=== PATIENT | female | born 1950 | race Caucasian/White ===

== ENCOUNTER 2023-12-17 14:17 | Inpatient (IN) | payer OTHER ==
[2023-12-17] MEDS ORDERED: ONDANSETRON 4 MG/2 ML VIAL ONE ×2 (14:47→17:27)
[2023-12-17] MEDS ORDERED: FAMOTIDINE 20 MG/2 ML VIAL IV ONE (14:47)
[2023-12-17] MEDS ORDERED: NA CHLORIDE 0.9% 1,000 ML ONE ×2 (14:47→17:28)
[2023-12-17 15:04] LABS: Absolute Basophils 0.1 K/uL (0-0.5); Absolute Lymphocytes (CBC) 2.1 K/uL (0.7-4.9); Absolute Monocytes 1.4 K/uL (0.1-1.3); Basophils % 0.3 % (0-1.3); Eosinophils % 0.3 % (0-4.4); Hematocrit 31.1 % (36.0-45.0); Hemoglobin 9.6 g/dL (12.0-15.0); Lymphocytes % 12.8 % (15.3-44.8); MCH 28.8 pg (27.0-35.0); MPV 9.3 fL (7.6-11.3); Monocytes % 8.3 % (3.3-12.3); Neutrophils % 78.3 % (41.7-73.7); Platelets 328 thou/uL (152-406); RBC Red Blood Cell Count 3.35 M/uL (3.86-4.86); Red Cell Distribution Width 15.3 % (12.1-15.2)
[2023-12-17 15:24] LABS: AST/SGOT 14 U/L (15-37); Albumin 2.9 g/dL (3.4-5.0); Albumin/Globulin Ratio 0.8 (1.1-1.8); Alkaline Phosphatase 61 U/L (45-117); Anion Gap 8.6 mEq/L (5.0-15.0); BUN Blood Urea Nitrogen 52 mg/dL (7-18); Bicarbonate 25 mEq/L (21-32); Bilirubin Total 0.2 mg/dL (0.2-1.0); Globulin 3.5 g/dL (2.3-3.5); Glomerular Filtration Rate 41 ml/min (=/>90); Glucose Level 106 mg/dL (74-106); Lipase 32 U/L (13-75); Potassium 5.6 mEq/L (3.5-5.1); Protein, Total 6.4 g/dL (6.4-8.2); Sodium Level 140 mEq/L (136-145)
[2023-12-17 15:27] LABS: ALT/SGPT < 14 U/L (13-56)
--- NOTE | 2023-12-17 16:56 | RAD REPORT ---
EXAM DESCRIPTION: CT - Abdomen Pelvis W Contrast - 12/17/2023 3:40 pm CLINICAL HISTORY: ABD PAIN COMPARISON: No comparisons TECHNIQUE: Thin cut axial CT imaging of the abdomen and pelvis was performed following intravenous a dministration of 100 mL Isovue 300. Multiplanar reformats were generated and reviewed. All CT scans are performed using dose optimization technique as appropriate and may include automated exposure control or mA/KV adjustment according to patient size. FINDINGS: No suspicious findings in the lung bases. The liver, spleen, adrenal glands, and pancreas show no suspicious findings. Gallbladder was surgical ly removed. Symmetric renal function is seen with no hydronephrosis or suspicious renal mass. Left renal interpol ar 2.7 cm cyst is incidentally noted. No dilated bowel loops. No free air, free fluid or inflammatory stranding. No hernia, mass or bulky l ymphadenopathy. Distal colonic diverticulosis. Short segment of apparent wall thickening along the mi d to distal sigmoid colon, without significant inflammatory changes, may relate to sequelae of prior diverticulitis, however is not well characterized given suboptimal distention. The urinary bladder is without significant finding. No suspicious bony findings. IMPRESSION: No acute intra-abdominal process. Distal colonic diverticulosis. Short segment of apparent [id number] sigmoid wall thickening, may r elate to sequelae of prior diverticulitis. Correlation with prior imaging or colonoscopic findings wo uld be helpful.
[2023-12-17] MEDS ORDERED: METRONIDAZOLE 500mg IVPB 500 MG/100 ML BAG IV ONE (17:27)
[2023-12-17] MEDS ORDERED: CIPROFLOXACIN 400mg IV 400 MG/200 ML BAG IV ONE (17:27)
--- NOTE | 2023-12-17 17:36 | EDPHYS ---
Physician Documentation [facility] Name: Liat Vega Age: 73 yrs Sex: Female : 1950 Arrival Date: 12/17/2023 Time: 14:17 Bed 8 Private MD: ED Physician Ron Szymanski HPI: 12/16 14:42 This 73 yrs old Female presents to ER via Wheelchair with complaints of High Blood kb Pressure, Bloody Stools - sent by pcp. 14:42 Pt is a 73 year old female who presents for LLQ pain, blood in stools, nausea, kb dizziness and low blood pressure. States symptoms started last night and have progressed through today. Denies vomiting, fever. . Historical: - Allergies: 14:44 Codeine; ap3 14:44 Morphine; ap3 - Home Meds: 14:44 Lexapro Oral [Active]; Unithroid oral [Active]; Ambien Oral [Active]; Metoprolol ap3 Tartrate Oral [Active]; Trelegy Ellipta inhalation [Active]; Xarelto oral [Active]; - PMHx: 14:44 Chronic obstructive lung disease; Hypothyroidism; Rheumatoid arthritis; chronic kidney ap3 disease-stage three; racing heart; bleeding ulcer; - Immunization history:: Client reports receiving the 2nd dose of the Covid vaccine. - Infectious Disease History:: Denies. - Social history:: Smoking status: Patient denies any tobacco usage or history of. ROS: 14:42 Constitutional: As per HPI kb Exam: 14:42 Constitutional: This is a well developed, well nourished patient who is awake, alert, kb and in no acute distress. Head/Face: Normocephalic, atraumatic. ENT: Moist Mucous membranes Cardiovascular: Regular rate Respiratory: Respirations even and unlabored. No increased work of breathing. Talking in full sentences Skin: Warm, dry with normal turgor. Normal color. MS/ Extremity: Pulses equal, no cyanosis. Neurovascular intact. Full, normal range of motion. Neuro: Awake and alert, GCS 15, oriented to person, place, time, and situation. Moves all extremities. Normal gait. 14:42 Abdomen/GI: Inspection: abdomen appears normal, Bowel sounds: normal, Palpation: soft, in all quadrants, moderate abdominal tenderness, in the left lower quadrant, 14:48 ECG was reviewed by the Attending Physician. kb Vital Signs: 14:36 BP 69 / 47; Pulse 100; Resp 18; ap3 14:48 Weight 63.5 kg; Height 5 ft. 6 in. ; ap3 15:06 BP 100 / 61; Pulse 71; Resp 18; Pulse Ox 92% on R/A; ph 15:30 BP 92 / 58; Pulse 74; Resp 18; Pulse Ox 94% on R/A; ph 16:00 BP 105 / 60; Pulse 83; Resp 16; Pulse Ox 93% on R/A; ph 16:30 BP 97 / 65; Pulse 85; Resp 16; Pulse Ox 93% on R/A; ph 17:31 BP 101 / 59; Pulse 79; Resp 18; Pulse Ox 94% on R/A; ph 18:15 BP 97 / 60; Pulse 78; Resp 16; Pulse Ox 95% on R/A; ph 18:56 BP 105 / 63; Pulse 65; Resp 18; Pulse Ox 96% on R/A; ph 19:22 Temp 97.9(O); kd3 19:30 BP 108 / 60; Pulse 89; Resp 19; Pulse Ox 96% on R/A; kd3 21:00 BP 102 / 63; Pulse 92; Resp 18; Pulse Ox 98% on R/A; kd3 14:48 Body Mass Index 22.60 (63.50 kg, 167.64 cm) ap3 MDM: 14:37 Patient medically screened. kb 14:43 Data reviewed: vital signs, nurses notes. kb 17:33 Differential diagnosis: GI bleed, anemia, hypotension, dehydration, abnormal kb electrolytes. Consideration of Admission/Observation Patient was admitted/placed on observation. Escalation of care including admission/observation considered. 17:34 Management of patient was discussed with the following: Hospitalist: Hospitalist team, ibis pt accepted for admission under Dr Ramsay. Historians other than the Patient: Spouse/Significant Other: . Counseling: I had a detailed discussion with the patient and/or guardian regarding the historical points, exam findings, and any diagnostic results supporting the discharge/admit diagnosis, lab results, radiology results, the need for further work-up and treatment in the hospital. 17:35 ED course: Sepsis reevaluation complete. kb 17:55 ED course: sepsis reevaluation complete. kb 12/16 14:42 Order name: CBC with Diff kb 12/16 14:42 Order name: CMP; Complete Time: 15:31 kb 12/16 14:42 Order name: Lipase; Complete Time: 15:31 kb 12/16 14:42 Order name: Urinalysis w/ reflexes; Complete Time: 18:01 kb 12/16 14:45 Order name: Type And Screen ph 12/16 16:59 Order name: Blood Culture Adult (2) kb 12/16 16:59 Order name: Lactate w/ 2H reflex if indic.; Complete Time: 17:54 kb 12/16 16:59 Order name: Protime (+inr); Complete Time: 18:27 kb 12/16 16:59 Order name: Ptt, Activated; Complete Time: 18:27 kb 12/16 18:27 Order name: BB Add On EDMS 12/16 18:27 Order name: Basic Metabolic Panel EDMS 12/16 18:27 Order name: CBC with Automated Diff EDMS 12/16 18:27 Order name: CBC with Automated Diff EDMS 12/16 18:27 Order name: CBC with Automated Diff EDMS 12/16 18:27 Order name: CBC with Automated Diff EDMS 12/16 18:27 Order name: Hematocrit EDMS 12/16 18:27 Order name: Hematocrit; Complete Time: 20:32 EDMS 12/16 18:27 Order name: Hematocrit EDMS 12/16 18:27 Order name: Hemoglobin EDMS 12/16 18:27 Order name: Hemoglobin; Complete Time: 20:32 EDMS 12/16 18:27 Order name: Hemoglobin EDMS 12/16 18:27 Order name: Lipid Profile EDMS 12/16 18:27 Order name: Lipid Profile EDMS 12/16 18:27 Order name: Basic Metabolic Panel; Complete Time: 20:41 EDMS 12/16 18:28 Order name: Comprehensive Metabolic Panel EDMS 12/16 18:28 Order name: Comprehensive Metabolic Panel EDMS 12/16 18:28 Order name: Comprehensive Metabolic Panel EDMS 12/16 18:28 Order name: Comprehensive Metabolic Panel EDMS 12/16 18:56 Order name: ABO/RH no charge; Complete Time: 19:00 EDMS 12/16 14:42 Order name: CT Abd/Pelvis - IV Contrast Only; Complete Time: 16:58 kb 12/16 18:27 Order name: CONS Physician Consult EDMS 12/16 18:27 Order name: EKG Electrocardiogram EDNH 12/16 18:27 Order name: EKG Electrocardiogram EDNH 12/16 18:27 Order name: EKG Electrocardiogram EDMS 12/16 18:27 Order name: EKG Electrocardiogram EDNH 12/16 18:27 Order name: EKG Electrocardiogram EDNH 12/16 18:27 Order name: EKG Electrocardiogram EDMS 12/16 18:27 Order name: EKG Electrocardiogram EDNH 12/16 18:27 Order name: EKG Electrocardiogram EDNH 12/16 18:27 Order name: EKG Electrocardiogram EDNH 12/16 18:27 Order name: EKG Electrocardiogram EDMS 12/16 18:27 Order name: EKG Electrocardiogram EDNH 12/16 14:42 Order name: IV Saline Lock; Complete Time: 15:02 kb 12/16 14:42 Order name: Labs collected and sent; Complete Time: 15:04 kb 12/16 16:59 Order name: EKG - Nurse/Tech; Complete Time: 17:00 kb EC:48 Rate is 82 beats/min. Rhythm is regular. QRS [place] is Normal. RI interval is normal at kb 130 msec. QRS interval is normal at 80 msec. QT interval is normal at 401 msec. Administered Medications: 15:04 Drug: NS 0.9% IV 1000 ml IV at 1 bolus Per protocol; 1000 mL bolus Route: IV; Rate: 1 ph bolus; Site: left antecubital; 16:15 Follow up: Response: No adverse reaction; IV Status: Completed infusion; IV Intake: ph 1000ml 15:04 Drug: Famotidine IVP 20 mg IVP once; dilute with 10 mL 0.9% NaCl; give over 2 minutes ph Route: IVP; Site: left antecubital; 18:06 Follow up: Response: No adverse reaction ph 15:04 Drug: Ondansetron IVP 4 mg IVP once; over 2 minutes Route: IVP; Site: left antecubital; ph 18:06 Follow up: Response: No adverse reaction ph 17:44 Drug: NS 0.9% IV (30 ml/kg) 30 ml/kg IV at bolus once; subtract 1L already infused ph Route: IV; Rate: bolus; Site: left antecubital; 18:55 Follow up: Response: No adverse reaction; IV Status: Completed infusion; IV Intake: ph 1000ml 17:44 Drug: metroNIDAZOLE IVPB 500 mg 100 ml IVPB at 200 ml/hr once over 30 mins Volume: 100 ph ml; Route: IVPB; Rate: 200 ml/hr; Infused Over: 30 mins; Site: left antecubital; 18:15 Follow up: Response: No adverse reaction; IV Status: Completed infusion ph 18:06 Drug: Ciprofloxacin IVPB 400 mg 200 ml IVPB once over 60 mins Volume: 200 ml; Route: ph IVPB; Infused Over: 60 mins; Site: left antecubital; 18:55 Drug: diphenhydrAMINE IVP 12.5 mg IVP once Route: IVP; Site: left forearm; ph 19:20 Drug: Pantoprazole IV 8 mg/hr IV at 25 ml/hr continuous; (Standard dilution is 80 mg in kd3 250 mL NS) Route: IV; Rate: 25 ml/hr; Site: left antecubital; Disposition Summary: 12/17/23 17:35 Hospitalization Ordered Notes: Hospitalization Status: Inpatient Admission kb Provider: Reggie Ramsay Condition: Stable kb Problem: new kb Symptoms: are unchanged kb Bed/Room Type: Standard kb Location: Intensive Care Unit(12/17/23 18:49) bd Room Assignment: 1-(12/17/23 18:49) bd Diagnosis - Hypotension, unspecified kb - GI Bleed/ Gastrointestinal hemorrhage, unspecified kb Forms: - Medication Reconciliation Form kb - SBAR form kb - Leadership Thank You Letter kb Addendum: 12/18/2023 21:31 Co-signature as Attending Physician, Ron Szymanski MD I agree with the assessment and c sánchez plan of care. Signatures: Dispatcher [employer] EDTrisha Diaz, DIAGNOSTIC TECHNICIAN-C DIAGNOSTIC TECHNICIAN-CkGuerda Gilmore Corey, MD MD cha Waters, Shelly, DIAGNOSTIC TECHNICIAN-C DIAGNOSTIC TECHNICIAN-Csnw Orin John, RN RN Flower Archuleta RN ARABELLA [email or web address] Tamia Kaplan RN RN kd3 Corrections: (The following items were deleted from the chart) 12/16 14:43 14:43 CBC+H.LAB.BRZ ordered. EDMS EDMS 14:43 14:43 COMPREHENSIVE METABOLIC PANEL+C.LAB.BRZ ordered. EDMS EDMS 14:43 14:43 LIPASE+C.LAB.BRZ ordered. EDMS EDMS 14:43 14:43 Urinalysis+U.LAB.BRZ ordered. EDMS EDMS 14:43 14:43 Abdomen Pelvis W Con+CT.RAD.BRZ ordered. EDMS EDMS 14:46 14:46 TYPE AND SCREEN+BB.LAB.BRZ ordered. EDMS EDMS 16:59 16:59 BLOOD CULTURE*+BA.LAB.BRZ ordered. EDMS EDMS 16:59 16:59 LACTATE+C.LAB.BRZ ordered. EDMS EDMS 16:59 16:59 PROTIME (+INR)+COAG.LAB.BRZ ordered. EDMS EDMS 16:59 16:59 PTT, ACTIVATED+COAG.LAB.BRZ ordered. EDMS EDMS 18:49 17:35 Telemetry/MedSurg (Inpatient) kb 18:49 17:35 kb
--- NOTE | 2023-12-17 17:36 | ER ---
Nurse's Notes [facility] Name: Liat Vega Age: 73 yrs Sex: Female : 1950 Arrival Date: 12/17/2023 Time: 14:17 Bed 8 Private MD: Diagnosis: Hypotension, unspecified;GI Bleed/ Gastrointestinal hemorrhage, unspecified Presentation: 12/16 14:36 Chief complaint: Patient states: she started having blood in her stool last night, and ap3 she is feeling weak and dizzy. patient also reports having low blood pressure. Coronavirus screen: At this time, the client does not indicate any symptoms associated with coronavirus-19. Ebola Screen: No symptoms or risks identified at this time. Risk Assessment: Do you want to hurt yourself or someone else? Patient reports no desire to harm self or others. Onset of symptoms was December 16, 2023. 14:36 Method Of Arrival: Wheelchair ap3 14:48 Acuity: NICOLASA 2 ap3 14:49 Initial Sepsis Screen: Does the patient meet any 2 criteria? Systolic BP < 90 mmHg. ap3 Mean Arterial Pressure (MAP) < 65. HR > 90 bpm. Yes Does the patient have a suspected source of infection? No. Patient's initial sepsis screen is negative. Triage Assessment: 14:47 General: Appears ill, Behavior is calm, cooperative. Pain: Complains of pain in left ap3 lower quadrant. Neuro: Level of Consciousness is awake, alert, obeys commands, Oriented to person, place, time, situation, Weakness Reports dizziness, weakness. Cardiovascular: Patient's skin is warm and dry. Respiratory: Airway is patent Respiratory effort is even, unlabored, Respiratory pattern is regular, symmetrical. GI: Reports rectal bleeding, bloody stool, nausea. Historical: - Allergies: 14:44 Codeine; ap3 14:44 Morphine; ap3 - Home Meds: 14:44 Lexapro Oral [Active]; Unithroid oral [Active]; Ambien Oral [Active]; Metoprolol ap3 Tartrate Oral [Active]; Trelegy Ellipta inhalation [Active]; Xarelto oral [Active]; - PMHx: 14:44 Chronic obstructive lung disease; Hypothyroidism; Rheumatoid arthritis; chronic kidney ap3 disease-stage three; racing heart; bleeding ulcer; - Immunization history:: Client reports receiving the 2nd dose of the Covid vaccine. - Infectious Disease History:: Denies. - Social history:: Smoking status: Patient denies any tobacco usage or history of. Screenin:48 Abuse screen: Denies threats or abuse. Nutritional screening: No deficits noted. ap3 Tuberculosis screening: No symptoms or risk factors identified. 14:49 [facility] ED Fall Risk Assessment (Adult) History of falling in the last 3 months, ap3 including since admission No falls in past 3 months (0 pts) Confusion or Disorientation No (0 pts) Intoxicated or Sedated No (0 pts) Impaired Gait Yes (1 pt) Mobility Assist Device Used Yes (1 pt) Altered Elimination No (0 pt) Score/Fall Risk Level 0 - 2 = Low Risk Oriented to surroundings, Maintained a safe environment, Educated pt \T\ family on fall prevention, incl call for assistance when getting out of bed, Assessed \T\ reinforced patient's understanding of fall precautions, Provided non-skid footwear, Hourly rounding (assess needs \T\ fall precautionary measures) done, Used ambulatory aids as needed (educated on \T\ assisted with), Used gait belt as appropriate. Assessment: 15:00 General: Appears in no apparent distress. Behavior is calm, cooperative. Pain: ph Complains of pain in left lower quadrant. Neuro: Level of Consciousness is awake, alert, obeys commands, Oriented to person, place, time, situation. Cardiovascular: Capillary refill < 3 seconds in bilateral fingers Patient's skin is warm and dry. Respiratory: Airway is patent Respiratory effort is even, unlabored. GI: Reports lower abdominal pain, rectal bleeding, bloody stool, nausea. : No signs and/or symptoms were reported regarding the genitourinary system. Derm: Skin is pale. 19:14 General: PT placed on breathing treatment by RT. . ph 19:29 General: Attempted to call report to ICU. Gave call back number. . kd3 20:53 General: Attempted to transport pt to the ICU. Fire alarms activated, locking the kd3 elevators. Pt transported back to the ED. Pt's HGB decreased significantly. PT educated on blood transfusion. . Vital Signs: 14:36 BP 69 / 47; Pulse 100; Resp 18; ap3 14:48 Weight 63.5 kg; Height 5 ft. 6 in. ; ap3 15:06 BP 100 / 61; Pulse 71; Resp 18; Pulse Ox 92% on R/A; ph 15:30 BP 92 / 58; Pulse 74; Resp 18; Pulse Ox 94% on R/A; ph 16:00 BP 105 / 60; Pulse 83; Resp 16; Pulse Ox 93% on R/A; ph 16:30 BP 97 / 65; Pulse 85; Resp 16; Pulse Ox 93% on R/A; ph 17:31 BP 101 / 59; Pulse 79; Resp 18; Pulse Ox 94% on R/A; ph 18:15 BP 97 / 60; Pulse 78; Resp 16; Pulse Ox 95% on R/A; ph 18:56 BP 105 / 63; Pulse 65; Resp 18; Pulse Ox 96% on R/A; ph 19:22 Temp 97.9(O); kd3 19:30 BP 108 / 60; Pulse 89; Resp 19; Pulse Ox 96% on R/A; kd3 21:00 BP 102 / 63; Pulse 92; Resp 18; Pulse Ox 98% on R/A; kd3 14:48 Body Mass Index 22.60 (63.50 kg, 167.64 cm) ap3 ED Course: 14:21 Patient arrived in ED. ra3 14:37 [facility]ellers [facility]C [facility] kb 14:37 Ron Szymanski MD is Attending Physician. kb 14:44 Orin John, ARABELLA is Primary Nurse. ph 14:48 Triage completed. ap3 14:48 Arm band placed on left wrist. ap3 14:49 Patient has correct armband on for positive identification. Bed in low position. Call ap3 light in reach. Side rails up X2. Adult w/ patient. Client placed on continuous cardiac and pulse oximetry monitoring. NIBP monitoring applied. personnel monitor on. Pulse ox on. NIBP on. 15:04 CBC with Diff Sent. ph 15:04 CMP Sent. ph 15:04 Lipase Sent. ph 15:05 Initial lab(s) drawn, by me, sent to lab. EKG done, by ED staff, reviewed by Trisha OLMOS T\T\S collected, blood band applied to patient. Inserted saline lock: 18 gauge in left antecubital area, using aseptic technique. Blood collected. Flushed with 10 mL NS. 15:42 CT Abd/Pelvis - IV Contrast Only In Process Unspecified. EDMS 16:49 No provider procedures requiring assistance completed. ph 17:31 Blood Culture Adult (2) Sent. ph 17:31 Lactate w/ 2H reflex if indic. Sent. ph 17:31 Protime (+inr) Sent. ph 17:31 Ptt, Activated Sent. ph 17:35 Reggie Ramsay MD is Hospitalizing Provider. kb 17:45 Inserted saline lock: 22 gauge in left forearm, using aseptic technique. Flushed with ph 10 mL NS. 18:56 Patient admitted, IV remains in place. ph 19:21 Primary Nurse role handed off by Orin John RN ty 19:23 Tamia Kaplan, ARABELLA is Primary Nurse. kd3 20:54 Provided Education on: Blood Transfusion. kd3 Administered Medications: 15:04 Drug: NS 0.9% IV 1000 ml IV at 1 bolus Per protocol; 1000 mL bolus Route: IV; Rate: 1 ph bolus; Site: left antecubital; 16:15 Follow up: Response: No adverse reaction; IV Status: Completed infusion; IV Intake: ph 1000ml 15:04 Drug: Famotidine IVP 20 mg IVP once; dilute with 10 mL 0.9% NaCl; give over 2 minutes ph Route: IVP; Site: left antecubital; 18:06 Follow up: Response: No adverse reaction ph 15:04 Drug: Ondansetron IVP 4 mg IVP once; over 2 minutes Route: IVP; Site: left antecubital; ph 18:06 Follow up: Response: No adverse reaction ph 17:44 Drug: NS 0.9% IV (30 ml/kg) 30 ml/kg IV at bolus once; subtract 1L already infused ph Route: IV; Rate: bolus; Site: left antecubital; 18:55 Follow up: Response: No adverse reaction; IV Status: Completed infusion; IV Intake: ph 1000ml 17:44 Drug: metroNIDAZOLE IVPB 500 mg 100 ml IVPB at 200 ml/hr once over 30 mins Volume: 100 ph ml; Route: IVPB; Rate: 200 ml/hr; Infused Over: 30 mins; Site: left antecubital; 18:15 Follow up: Response: No adverse reaction; IV Status: Completed infusion ph 18:06 Drug: Ciprofloxacin IVPB 400 mg 200 ml IVPB once over 60 mins Volume: 200 ml; Route: ph IVPB; Infused Over: 60 mins; Site: left antecubital; 18:55 Drug: diphenhydrAMINE IVP 12.5 mg IVP once Route: IVP; Site: left forearm; ph 19:20 Drug: Pantoprazole IV 8 mg/hr IV at 25 ml/hr continuous; (Standard dilution is 80 mg in kd3 250 mL NS) Route: IV; Rate: 25 ml/hr; Site: left antecubital; Medication: 16:39 VIS not applicable for this client. ph Intake: 16:15 IV: 1000ml; Total: 1000ml. ph 18:55 IV: 1000ml; Total: 2000ml. ph Outcome: 17:35 Decision to Hospitalize by Provider. kb 18:56 Condition: stable ph 18:56 Instructed on the need for admit, 21:25 Admitted to ICU accompanied by nurse, room 1, on monitor, with chart, Report called to kit Magaña RN 21:26 Patient left the ED. mark3 Signatures: Dispatcher [employer] EDMS Trisha Sellers, MOVIE WRITER-C MOVIE WRITER-Orin Mesa, RN RN ph Flower Kong RN RN dc3 Tamia Kaplan RN RN mark3 Yarelis bAbasi Tylor ty
[2023-12-17 17:54] LABS: Sqamous Epithelial <5 /HPF (None Seen); Urine Bacteria None Seen /HPF (<20); Urine Bilirubin NEGATIVE (Negative); Urine Blood 2+ (Negative); Urine Clarity Clear (Clear); Urine Color Light-Yellow (Yellow); Urine Culture Reflex Order NOT NEEDED; Urine Glucose NEGATIVE (Negative); Urine Ketones NEGATIVE (Negative); Urine Microscopic Reflex YN ORDER UMIC; Urine Nitrite NEGATIVE (Negative); Urine Protein NEGATIVE (Negative); Urine RBC <5 /HPF (None Seen); Urine Urobilinogen Normal (Normal); Urine WBC <5 /HPF (<5); Urine pH 5.5 (5.0-7.0)
[2023-12-17 17:57] LABS: Specific Gravity > 1.030 (1.005-1.030)
[2023-12-17] MEDS: PANTOPRAZOLE INJ 80 MG in NA CHLORIDE 0.9% 250 ML IV SCH (18:00)
[2023-12-17] MEDS ORDERED: MORPHINE 2 MG/ML SYR IV PRN (18:16)
[2023-12-17 18:25] LABS: PT Prothrombin Time 15.3 SECONDS (9.4-12.5); PTT, Activated Partial Thromb 31.8 SECONDS (24.3-36.9); Protime INR 1.38
[2023-12-17] MEDS: FUROSEMIDE 40 MG/4 ML VIAL IV ONE (18:32)
[2023-12-17] MEDS ORDERED: DIPHENHYDRAMINE 50 MG/ML VIAL ONE (18:46)
[2023-12-17] MEDS ORDERED: ALBUTEROL 2.5 MG/3 ML NEB SOL ONE ×2 (19:02→20:07)
[2023-12-17] MEDS: ALBUTEROL 2.5 MG/3 ML NEB SOL NEB ONE ×2 (19:06→20:45)
--- NOTE | 2023-12-17 19:15 | P.HP ---
Certification for Inpatient Patient admitted to: Inpatient With expected LOS: >2 Midnights Patient will require the following post-hospital care: None Practitioner: I am a practitioner with admitting privileges, knowledge of patient current condition, hospital course, and medical plan of care. Services: Services provided to patient in accordance with Admission requirements found in Title 42 Section 412.3 of the Code of Federal Regulations <Soledad Wall - Last Filed: 12/17/23 19:07> Patient History Date of Service: 12/17/23 Primary Care Provider: came from Dr. Mckinney's office Reason for admission: GIB, hypotension, hyperkalemia History of Present Illness: Ms. Vega is a 73-year-old female with a past medical history of tachycardia, hypothyroidism, hyperlipidemia, ulcers, and diverticulitis. She has had GI bleeding about every 3 months for about a year. She states that last p.m. she knew she was bleeding because of the smell not so much what the stool looked like. She denies ever receiving blood. She recently had an endoscopy that showed an ulcer but she cannot say where. She went to see Dr. Mckinney this morning and when she arrived she was so hypotensive that she was sent to the emergency. She states she did not only feel like she was going to pass out but she felt like she was going to . She arrived in the emergency department with a systolic pressure in the 60s. She was given a normal saline fluid bolus, Pepcid, Cipro, Flagyl, and placed on a Protonix drip. She is currently awake, alert, oriented. Systolic pressure is 105. She will be admitted to ICU for further evaluation and treatment with a consult to Dr. Murillo. Labs: WBC 16.6 with neutrophils of 78.3%, H/H 9.6/31.1 with platelets of 328. Sodium 140, potassium 5.6, chloride 112, bicarb 25, glucose 106, BUN 52, creatinine 1.36 with a GFR of 41, LFTs normal, lipase 32, lactate 1.3, INR 1.38. Patient is be positive Imaging: CT abdomen pelvis with contrast impression: "No acute intra-abdominal process. Distal colonic diverticulosis. Short segment of apparent mid to distal sigmoid wall thickening, may relate to sequelae of prior diverticulitis. Correlation with prior imaging or colonoscopic findings would be helpful. Home medications list reviewed: Yes - Past Medical/Surgical History Has patient received pneumonia vaccine in the past: No Diabetic: No -: GIB -: Diverticulosis -: Ulcers (unknown if gastric/intestinal) -: Tachycardia -: Hypothyroid -: right foot surgery -: catarct -: tonsillectomy -: appendectomy -: hysterectomy -: cholecystectomy -: Berry Fundiplication Psychosocial/ Personal History: Lives at home with . - Family History Father -: GI disease, Liver disease - Social History Smoking Status: Unknown if ever smoked Alcohol use: No CD- Drugs: No Caffeine use: Yes Place of Residence: Home <Soledad Wall - Last Filed: 12/17/23 19:07> Date of Service: 12/18/23 <Reggie Ramsay - Last Filed: 12/18/23 09:49> Allergies codeine Allergy (Verified 12/17/23 19:20) morphine Allergy (Verified 12/17/23 19:20) ciprofloxacin [From Cipro] Adverse Reaction (Verified 12/18/23 07:37) Home Medications: Atorvastatin Calcium [Lipitor] 10 mg PO BEDTIME 12/17/23 Escitalopram Oxalate [Lexapro] 10 mg PO DAILY 12/17/23 Levothyroxine Sodium [Euthyrox] 75 mcg PO DAILY 12/17/23 Metoprolol Succinate [Toprol Xl] 25 mg PO DAILY 12/17/23 Pantoprazole [Protonix Tab*] 1 tab PO DAILY 12/17/23 Zolpidem Tartrate [Ambien*] 10 mg PO BEDTIME 12/17/23 Cetirizine HCl [Zyrtec] 10 mg PO DAILY 12/18/23 Rivaroxaban [Xarelto] 20 mg PO DAILY 12/18/23 Review of Systems 10-point ROS is otherwise unremarkable General: Weakness, Malaise Cardiovascular: Palpitations Gastrointestinal: Abdominal Pain, Hematochezia, As per HPI Neurological: Other (syncope) <Soledad Wall - Last Filed: 12/17/23 19:07> Physical Examination - Physical Exam General: Alert, In no apparent distress, Oriented x3 HEENT: Other (pale conjunctiva) Neck: Supple Respiratory: Normal air movement, Other (nasal congestion) Cardiovascular: Normal pulses, Regular rate/rhythm Capillary refill: <2 Seconds Gastrointestinal: Hypoactive, Soft and benign Musculoskeletal: No clubbing Integumentary: Other (pallor) Neurological: Normal speech, Normal tone, Normal affect Lymphatics: No axilla or inguinal lymphadenopathy External genitalia: Deferred Rectal: Deferred - Studies Laboratory Data (last 24 hrs) 12/17/23 12/17/23 12/17/23 17:15 14:50 14:50 WBC 16.60 H Hgb 9.6 L Hct 31.1 L Plt Count 328 PT 15.3 H INR 1.38 APTT 31.8 Sodium 140 Potassium 5.6 H BUN 52 H Creatinine 1.36 H Glucose 106 Total Bilirubin 0.2 AST 14 L ALT < 14 Alkaline Phosphatase 61 Lipase 32 <Soledad Wall - Last Filed: 12/17/23 19:07> - Studies Laboratory Data (last 24 hrs) 12/17/23 12/17/23 12/17/23 17:15 14:50 14:50 WBC 16.60 H Hgb 9.6 L Hct 31.1 L Plt Count 328 PT 15.3 H INR 1.38 APTT 31.8 Sodium 140 Potassium 5.6 H BUN 52 H Creatinine 1.36 H Glucose 106 Total Bilirubin 0.2 AST 14 L ALT < 14 Alkaline Phosphatase 61 Lipase 32 <Reggie Ramsay - Last Filed: 12/18/23 09:49> Assessment and Plan - Plan GIB with hypotension Gentle hydration Protonix drip NPO Consult Dr. Hart monitor and trend, serial H/H PRBCs prn Hgb < 8.0 bedrest Ulcer Bleeding study tomorrow vs scope Dr. Hart consult Diverticulosis Cipro Flagyl Pain control Hyperkalemia Albuterol for hyperkalemia Lasix x 1 if BP permits COPD Albuterol pulmonary toilet Plan to discharge in: Greater than 2 days - Advance Directives Does patient have a Living Will: No Does patient have a Durable POA for Healthcare: No <Soledad Wall - Last Filed: 12/17/23 19:07> - Plan Pt seen and examined. I agree with the note by the CELL TENDER. Pt is a 73yo female with past medical history of hypothyroidism, hyperlipidemia, ulcers, and diverticulitis who presented with GI bleed. She usually bleeds about once every 3 months over the past 1 year. Pt went to Dr. Mckinney's office where her vital signs showed hypotension. She was sent to the ER for evaluation where she was hydrated. Lab studies show WBC 16.6 with neutrophils of 78.3%, H/H 9.6/31.1 with platelets of 328. Sodium 140, potassium 5.6, chloride 112, bicarb 25, glucose 106, BUN 52, creatinine 1.36 with a GFR of 41, LFTs normal, lipase 32, lactate 1.3, INR 1.38. CT abd/pelvis is concerning for diverticulitis. At [facility], pt is in [facility]. A/P: GI bleed with hypotension: Hgb is 9.6. Will continue IVFa nd monitor H/H. Continue protonix drip and consult GI. Possible Diverticulitis: CT abd shows No acute intra-abdominal process. Distal colonic diverticulosis. Short segment of apparent mid to distal sigmoid wall thickening, may relate to sequelae of prior diverticulitis. Continue cipro and flagyl. COPD: stable. Continue prn duoned and oxygen. Hyperkalemia: Will treat and monitor K level. <Reggie Ramsay - Last Filed: 12/18/23 09:49>
[2023-12-17 20:19] LABS: Hematocrit 23.1 % (36.0-45.0); Hemoglobin 7.2 g/dL (12.0-15.0)
[2023-12-17 20:28] LABS: Anion Gap 7.9 mEq/L (5.0-15.0); Potassium 3.9 mEq/L (3.5-5.1)
[2023-12-17] MEDS: CIPROFLOXACIN 400mg IV 400 MG/200 ML BAG IV SCH (21:00)
[2023-12-17] MEDS: NA CHLORIDE 0.9% 250 ML ONE (21:50)
[2023-12-17] MEDS: FUROSEMIDE 20 MG/ 2ML VIAL ONE (21:52)
[2023-12-17 21:54] LABS: Blood Morphology Comment NOT SEEN (NOT SEEN); Platelet Estimate ADEQ; White Blood Cell Scan OK (OK)
[2023-12-17] MEDS: NA CHLORIDE 0.9% 250 ML IV SCH (21:56)
[2023-12-17] MEDS: NA CHLORIDE 0.9% 1,000 ML IV SCH (21:56)
[2023-12-17] MEDS: ONDANSETRON 4 MG/2 ML VIAL IV PRN (22:24)
[2023-12-17 23:43] VITALS: BMI 23.6
[2023-12-18] MEDS: NA CHLORIDE 0.9% 250 ML IV ONE (00:19)
[2023-12-18] MEDS: METRONIDAZOLE 500mg IVPB 500 MG/100 ML BAG IV SCH (01:00)
[2023-12-18 05:21] LABS: Absolute Basophils 0.1 K/uL (0-0.5); Absolute Eosinophils 0.4 K/uL (0-0.5); Absolute Monocytes 1.1 K/uL (0.1-1.3); Absolute Neutrophil 6.8 K/uL (1.8-8.0); Basophils % 0.7 % (0-1.3); Eosinophils % 4.2 % (0-4.4); MCHC 33.3 g/dL (32.0-36.0); MPV 8.9 fL (7.6-11.3); Monocytes % 10.3 % (3.3-12.3); Neutrophils % 65.8 % (41.7-73.7); Nucleated Red Blood Cells % 0.1 % (0-0); Platelets 197 thou/uL (152-406); RBC Red Blood Cell Count 3.33 M/uL (3.86-4.86); Red Cell Distribution Width 15.8 % (12.1-15.2)
[2023-12-18 05:54] LABS: AST/SGOT 15 U/L (15-37); Albumin 2.7 g/dL (3.4-5.0); Albumin/Globulin Ratio 1.2 (1.1-1.8); Alkaline Phosphatase 42 U/L (45-117); Anion Gap 6.9 mEq/L (5.0-15.0); BUN Blood Urea Nitrogen 49 mg/dL (7-18); Bicarbonate 26 mEq/L (21-32); Bilirubin Total 0.4 mg/dL (0.2-1.0); Globulin 2.3 g/dL (2.3-3.5); Glomerular Filtration Rate 54 ml/min (=/>90); Glucose Level 83 mg/dL (74-106); HDL Cholesterol 32 mg/dL (40-60); LDL Cholesterol, Calculated 38 mg/dL (<130); LDL Cholesterol,Calc NonReport 38; Potassium 3.9 mEq/L (3.5-5.1); Sodium Level 145 mEq/L (136-145)
[2023-12-18 06:02] LABS: ALT/SGPT < 14 U/L (13-56)
[2023-12-18] MEDS: FENTANYL CITR 100 MCG/2 ML IV ONE (08:44)
[2023-12-18] MEDS: LORazepam 2 MG/ML VIAL IV ONE (09:48)
--- NOTE | 2023-12-18 09:55 | P.PN ---
Subjective Date of Service: 12/18/23 Primary Care Provider: came from Dr. Mckinney's office Chief Complaint: GIB, hypotension, hyperkalemia Subjective: No new changes (LLQ pain and slight headache this am. H/H up to 03/18. Awaiting eval per Dr. Hart. Pressure remains soft) <WallSoledad - Last Filed: 12/18/23 09:57> Date of Service: 12/18/23 <Reggie Ramsay - Last Filed: 12/18/23 15:00> Review of Systems 10-point ROS is otherwise unremarkable General: Malaise Cardiovascular: As per HPI Gastrointestinal: As per HPI Neurological: As per HPI <WallSoledad Jose G - Last Filed: 12/18/23 09:57> Physical Examination - Vital Signs Temperature: 98 F Blood Pressure: 105/68 Pulse: 79 Respirations: 19 Pulse Ox (%): 97 - Physical Exam General: Alert, Oriented x3, Mild distress, Other (flushed) HEENT: Atraumatic, Normocephalic Neck: Supple Respiratory: Normal air movement Cardiovascular: Regular rate/rhythm, Normal S1 S2 Capillary refill: <2 Seconds Gastrointestinal: Tenderness (LLQ) Musculoskeletal: No clubbing Integumentary: Other (flushed) Neurological: Normal tone, Normal affect, Abnormal strength Lymphatics: No axilla or inguinal lymphadenopathy External genitalia: Deferred Rectal: Deferred - Studies Laboratory Data (last 24 hrs) 12/17/23 12/17/23 12/17/23 17:15 14:50 14:50 WBC 16.60 H Hgb 9.6 L Hct 31.1 L Plt Count 328 PT 15.3 H INR 1.38 APTT 31.8 Sodium 140 Potassium 5.6 H BUN 52 H Creatinine 1.36 H Glucose 106 Total Bilirubin 0.2 AST 14 L ALT < 14 Alkaline Phosphatase 61 Lipase 32 <Soledad Wall Jose G - Last Filed: 12/18/23 09:57> - Studies Laboratory Data (last 24 hrs) 12/17/23 12/17/23 12/17/23 17:15 14:50 14:50 WBC 16.60 H Hgb 9.6 L Hct 31.1 L Plt Count 328 PT 15.3 H INR 1.38 APTT 31.8 Sodium 140 Potassium 5.6 H BUN 52 H Creatinine 1.36 H Glucose 106 Total Bilirubin 0.2 AST 14 L ALT < 14 Alkaline Phosphatase 61 Lipase 32 <Reggie Ramsay - Last Filed: 12/18/23 15:00> Assessment And Plan - Plan GIB with hypotension Gentle hydration Protonix drip NPO Consult Dr. Hart monitor and trend, serial H/H PRBCs prn Hgb < 8.0 bedrest Ulcer Bleeding study tomorrow vs scope Dr. Hart consult Diverticulosis Cipro - pt c/o itching and rash with dose, benadryl given. Held dose second to PRBC infusion. Held this am dose (12/18/23) Flagyl Pain control Hyperkalemia Albuterol for hyperkalemia, potassium 5.6 to 3.8 on 12/17 Lasix x 1 if BP permits COPD Albuterol pulmonary toilet Tachycardia takes Metoprolol at home - hold second to hypotension DVT post foot surgery in November 10. This is second DVT. Placed on Xarelto qod. Hold Xarelto VTE/GI scd/protonix <WallSoledad - Last Filed: 12/18/23 09:57> - Plan Pt seen and examined. I agree with the note by the CONSERVATION SCIENCE OFFICER. Hgb is 10 after blood transfusion for acute blood loss anemia. She had maroon blood in her stool. Waiting for GI evaluation. Continue protonix drip. Continue cipro and flagyl for possible diverticulitis. <Reggie Ramsay - Last Filed: 12/18/23 15:00>
--- NOTE | 2023-12-18 11:45 | EKG ---
Test Date: 2023-12-17 Test Time: 14:46:06 Compensation Consulting Manager: MASTER MEASUREMENT RESULTS: Intervals: Rate: 82 IA: 130 QRSD: 80 QT: 344 QTc: 401 [place]: P: 80 IA: 130 QRS: 55 T: 75 INTERPRETIVE STATEMENTS: Normal sinus rhythm Normal ECG No previous ECG available for comparison Electronically Signed On 12-18-23 11:42:50 CDT by Lamont Jiménez
[2023-12-18 11:57] LABS: Hematocrit 29.9 % (36.0-45.0); Hemoglobin 9.8 g/dL (12.0-15.0)
[2023-12-18] MEDS ORDERED: propofoL 200 MG/20 ML VIAL IV ONE (12:45)
[2023-12-18] MEDS: Ringers Lactate 1,000 ML IV ONE (12:47)
[2023-12-18] MEDS: ACETAMINOPHEN 500 MG TAB PO ONE (14:01)
[2023-12-18] MEDS: PANTOPRAZOLE INJ 80 MG in NA CHLORIDE 0.9% 250 ML IV SCH (14:02)
[2023-12-18] MEDS: FENTANYL CITR 100 MCG/2 ML IV PRN (14:02)
[2023-12-18] MEDS: SIMETHICONE 40 MG/ 0.6 ML PO SCH (16:06)
[2023-12-19] MEDS: ACETAMINOPHEN 325 MG TABLET PO PRN (01:16)
[2023-12-19 06:03] LABS: Absolute Eosinophils 0.7 K/uL (0-0.5); Absolute Lymphocytes (CBC) 1.2 K/uL (0.7-4.9); Absolute Monocytes 0.6 K/uL (0.1-1.3); Absolute Neutrophil 4.7 K/uL (1.8-8.0); Basophils % 0.6 % (0-1.3); Eosinophils % 9.6 % (0-4.4); Hematocrit 27.3 % (36.0-45.0); Hemoglobin 9.2 g/dL (12.0-15.0); Lymphocytes % 17.3 % (15.3-44.8); MCH 30.2 pg (27.0-35.0); MCHC 33.7 g/dL (32.0-36.0); MCV 89.6 fL (80-100); MPV 8.7 fL (7.6-11.3); Monocytes % 7.7 % (3.3-12.3); Neutrophils % 64.8 % (41.7-73.7); Platelets 170 thou/uL (152-406); RBC Red Blood Cell Count 3.05 M/uL (3.86-4.86)
[2023-12-19 06:23] LABS: ALT/SGPT < 14 U/L (13-56); AST/SGOT 18 U/L (15-37); Albumin 2.7 g/dL (3.4-5.0); Albumin/Globulin Ratio 1.1 (1.1-1.8); Alkaline Phosphatase 46 U/L (45-117); Anion Gap 4.1 mEq/L (5.0-15.0); BUN Blood Urea Nitrogen 22 mg/dL (7-18); Bicarbonate 27 mEq/L (21-32); Bilirubin Total 0.4 mg/dL (0.2-1.0); Globulin 2.5 g/dL (2.3-3.5); Glomerular Filtration Rate 70 ml/min (=/>90); Glucose Level 81 mg/dL (74-106); Potassium 4.1 mEq/L (3.5-5.1); Protein, Total 5.2 g/dL (6.4-8.2); Sodium Level 145 mEq/L (136-145)
[2023-12-19] MEDS: PROMETHAZINE INJ 25 MG/ML AMP IV PRN (11:54)
--- NOTE | 2023-12-19 12:40 | P.PN ---
Subjective Date of Service: 12/19/23 Primary Care Provider: came from Dr. Mckinney's office Chief Complaint: GIB, hypotension, hyperkalemia Subjective: Improving (still having some nausea and dark, tary stools) <Soledad Wall - Last Filed: 12/19/23 12:36> Date of Service: 12/19/23 <ZaidnerisLinuskeniaclement C - Last Filed: 12/19/23 13:15> Review of Systems 10-point ROS is otherwise unremarkable General: Weakness Gastrointestinal: Abdominal Pain, Melena, Hematochezia, As per HPI Neurological: Weakness <Soledad Wall - Last Filed: 12/19/23 12:36> Physical Examination - Vital Signs Temperature: 97.9 F Blood Pressure: 108/53 Pulse: 84 Respirations: 16 Pulse Ox (%): 95 - Physical Exam General: Alert, In no apparent distress, Oriented x3 HEENT: Atraumatic, Normocephalic Neck: Supple Respiratory: Normal air movement Cardiovascular: Normal pulses, Regular rate/rhythm Capillary refill: <2 Seconds Gastrointestinal: Soft and benign Musculoskeletal: No clubbing, No swelling Integumentary: No rashes Neurological: Normal speech, Normal tone Lymphatics: No axilla or inguinal lymphadenopathy External genitalia: Deferred Rectal: Deferred <Soledad Wall - Last Filed: 12/19/23 12:36> Assessment And Plan - Plan GIB with hypotension Gentle hydration Protonix drip NPO = advance Consult Dr. Hart - took pt for endoscopy 12/18/23, recommends pill cameral monitor and trend, serial H/H PRBCs prn Hgb < 8.0, Hgb stable bedrest Ulcer Bleeding study tomorrow vs scope Dr. Hart following Diverticulosis Cipro - pt c/o itching and rash with dose, benadryl given. Held dose second to PRBC infusion. Held this am dose (12/18/23) Flagyl (WBCs trending down) Pain control Hyperkalemia Albuterol for hyperkalemia, potassium 5.6 to 3.8 on 12/17 Lasix x 1 if BP permits COPD Albuterol pulmonary toilet Tachycardia takes Metoprolol at home - hold second to hypotension DVT post foot surgery in November 10. This is second DVT. Placed on Xarelto qod. Hold Xarelto VTE/GI scd/protonix <Soledad Wall Jose G - Last Filed: 12/19/23 12:36> - Plan Pt seen and examined. I agree with the note by the OCCUPATIONAL HYGIENIST. Hgb is 9.2 <- 10 after blood transfusion for acute blood loss anemia. She is currently having dark tarry stool. Monitor H/H. GI did EGD which showed non-bleeding gastric ulcer. GI plans to do capsule endoscopy. Continue protonix drip. Continue cipro and flagyl for possible diverticulitis. Continue prn benadryl for itching. <Reggie Ramsay - Last Filed: 12/19/23 13:15>
[2023-12-19] MEDS: PROMETHAZINE INJ 25 MG/ML AMP IV ONE (15:29)
[2023-12-19] MEDS: HYDROMORPHONE HCL 2 MG/ML inj IV ONE (15:29)
[2023-12-19] MEDS: HYDROMORPHONE HCL 0.5 MG/0.5 ML INJ IV PRN (23:24)
[2023-12-20 05:55] LABS: Absolute Eosinophils 0.7 K/uL (0-0.5); Absolute Lymphocytes (CBC) 1.3 K/uL (0.7-4.9); Absolute Monocytes 0.6 K/uL (0.1-1.3); Absolute Neutrophil 2.7 K/uL (1.8-8.0); Basophils % 0.7 % (0-1.3); Eosinophils % 14.1 % (0-4.4); Hematocrit 27.7 % (36.0-45.0); Hemoglobin 9.3 g/dL (12.0-15.0); Lymphocytes % 24.3 % (15.3-44.8); MCHC 33.5 g/dL (32.0-36.0); MCV 89.7 fL (80-100); MPV 8.5 fL (7.6-11.3); Monocytes % 10.8 % (3.3-12.3); Neutrophils % 50.1 % (41.7-73.7); Nucleated Red Blood Cells % 0.1 % (0-0); Platelets 197 thou/uL (152-406); RBC Red Blood Cell Count 3.09 M/uL (3.86-4.86); Red Cell Distribution Width 16.2 % (12.1-15.2)
[2023-12-20 06:07] LABS: AST/SGOT 19 U/L (15-37); Albumin 2.5 g/dL (3.4-5.0); Alkaline Phosphatase 52 U/L (45-117); Anion Gap 3.8 mEq/L (5.0-15.0); BUN Blood Urea Nitrogen 12 mg/dL (7-18); Bicarbonate 26 mEq/L (21-32); Bilirubin Total 0.3 mg/dL (0.2-1.0); Globulin 2.6 g/dL (2.3-3.5); Glomerular Filtration Rate 70 ml/min (=/>90); Glucose Level 89 mg/dL (74-106); Potassium 3.8 mEq/L (3.5-5.1); Protein, Total 5.1 g/dL (6.4-8.2); Sodium Level 143 mEq/L (136-145)
[2023-12-20 06:15] LABS: ALT/SGPT < 14 U/L (13-56)
[2023-12-20 11:19] VITALS: O2SAT 98
--- NOTE | 2023-12-20 11:55 | P.DS ---
Admission Date: 12/17/23 Discharge Date: 12/20/23 Primary Care Provider: came from Dr. Mckinney's office Disposition: ROUTINE DISCHARGE Reason for Admission: GIB, hypotension, hyperkalemia Consultations: Dr. Hart Procedures: EGD Brief History of Present Illness: Ms. Vega is a 73-year-old female with a past medical history of tachycardia, hypothyroidism, hyperlipidemia, ulcers, and diverticulitis. She has had GI bleeding about every 3 months for about a year. She states that last p.m. she knew she was bleeding because of the smell not so much what the stool looked like. She denies ever receiving blood. She recently had an endoscopy that showed an ulcer but she cannot say where. She went to see Dr. Mckinney this morning and when she arrived she was so hypotensive that she was sent to the emergency. She states she did not only feel like she was going to pass out but she felt like she was going to . She arrived in the emergency department with a systolic pressure in the 60s. She was given a normal saline fluid bolus, Pepcid, Cipro, Flagyl, and placed on a Protonix drip. She is currently awake, alert, oriented. Systolic pressure is 105. She will be admitted to ICU for further evaluation and treatment with a consult to Dr. Murillo. Labs: WBC 16.6 with neutrophils of 78.3%, H/H 9.6/31.1 with platelets of 328. Sodium 140, potassium 5.6, chloride 112, bicarb 25, glucose 106, BUN 52, creatinine 1.36 with a GFR of 41, LFTs normal, lipase 32, lactate 1.3, INR 1.38. Patient is B+ Imaging: CT abdomen pelvis with contrast impression: "No acute intra-abdominal process. Distal colonic diverticulosis. Short segment of apparent mid to distal sigmoid wall thickening, may relate to sequelae of prior diverticulitis. Correlation with prior imaging or colonoscopic findings would be helpful. Hospital Course: 12/18/23 2 units PRBCs given and H/H up to 03/18. Blood pressure remains soft. Electrolytes improved and WBC trending down. Remains on Flagyl IV, Cipro discontinued secondary to itching. Dr. Murillo performed endoscopy. No active bleeding noted. Positive inflammatory changes without malignancy, negative for H. pylori. he would like a swallow camera endoscopy. 12/19/23 H/H stable at 9.2/27.3. Remains nauseated with dark tarry stools. Blood pressure remains soft. H/H seems to have stabilized but will recheck in the morning to evaluate for discharge 12/20/23 Appt set with GI for Saturday12/24/23. Pt states she will also make an appointment with her vascular surgeon. She is pain free today. Hemoglobin stable. No melena today. Mrs. Vega will be discharged to continue her regular medications which does include Xarelto every other day. New prescriptions on discharge: Flagyl 500mg po TID x 5 days. Discussed bland diet and safe activity. She is aware she should remain seated and call for assistance if her admission symptoms recur Vital Signs/Physical Exam: Temp Pulse Resp BP Pulse Ox 97.3 F 71 16 142/74 H 98 12/20/23 08:00 12/20/23 08:00 12/20/23 08:00 12/20/23 08:00 12/20/23 08:00 General: Alert, In no apparent distress, Oriented x3 HEENT: Atraumatic, Normocephalic Neck: Supple Respiratory: Normal air movement Cardiovascular: Regular rate/rhythm Capillary refill: <2 Seconds Gastrointestinal: Soft and benign Musculoskeletal: No clubbing, No swelling Integumentary: No rashes Neurological: Normal speech, Normal tone, Normal affect Lymphatics: No axilla or inguinal lymphadenopathy External genitalia: Deferred Rectal: Deferred Laboratory Data at Discharge: WBC 5.30 thou/uL (4.3-10.9) 12/20/23 05:25 Hgb 9.3 g/dL (12.0-15.0) L 12/20/23 05:25 Hct 27.7 % (36.0-45.0) L 12/20/23 05:25 Plt Count 197 thou/uL (152-406) 12/20/23 05:25 PT 15.3 SECONDS (9.4-12.5) H 12/17/23 17:15 INR 1.38 12/17/23 17:15 APTT 31.8 SECONDS (24.3-36.9) 12/17/23 17:15 Sodium 143 mEq/L (136-145) 12/20/23 05:25 Potassium 3.8 mEq/L (3.5-5.1) 12/20/23 05:25 BUN 12 mg/dL (7-18) 12/20/23 05:25 Creatinine 0.86 mg/dL (0.55-1.02) 12/20/23 05:25 Glucose 89 mg/dL (74-106) 12/20/23 05:25 Total Bilirubin 0.3 mg/dL (0.2-1.0) 12/20/23 05:25 AST 19 U/L (15-37) 12/20/23 05:25 ALT < 14 U/L (13-56) 12/20/23 05:25 Alkaline Phosphatase 52 U/L (45-117) 12/20/23 05:25 Triglycerides 199 mg/dL (<150) H 12/18/23 04:38 Cholesterol 110 mg/dL (<200) 12/18/23 04:38 HDL Cholesterol 32 mg/dL (40-60) L 12/18/23 04:38 Cholesterol/HDL Ratio 3.44 12/18/23 04:38 Lipase 32 U/L (13-75) 12/17/23 14:50 Home Medications: Atorvastatin Calcium [Lipitor*] 10 mg PO BEDTIME 12/17/23 Escitalopram Oxalate [Lexapro] 10 mg PO DAILY 12/17/23 Levothyroxine Sodium [Euthyrox] 75 mcg PO DAILY 12/17/23 Metoprolol Succinate [Toprol Xl*] 25 mg PO DAILY 12/17/23 Pantoprazole [Protonix Tab*] 1 tab PO DAILY 12/17/23 Zolpidem Tartrate [Ambien*] 10 mg PO BEDTIME 12/17/23 Cetirizine HCl [Zyrtec] 10 mg PO DAILY 12/18/23 Rivaroxaban [Xarelto] 15 mg PO DIRECTED #15 tablet 12/20/23 New Medications: Rivaroxaban [Xarelto] 15 mg PO DIRECTED #15 tablet Physician Discharge Instructions: Ms. Vega is a 73-year-old female with a past medical history of tachycardia, hy pothyroidism, hyperlipidemia, ulcers, and diverticulitis. She has had GI bleeding about every 3 months for about a year. She states that last p.m. she knew she was bleeding because of the smell not so much what the stool looked like. She denies ever receiving blood. She recently had an endoscopy that showed an ulcer but she cannot say where. She went to see Dr. Mckinney this morning and when she arrived she was so hypotensive that she was sent to the emergency. She states she did not only feel like she was going to pass out but she felt like she was going to . She arrived in the emergency department with a systolic pressure in the 60s. She was given a normal saline fluid bolus, Pepcid, Cipro, Flagyl, and placed on a Protonix drip. She is currently awake, alert, oriented. Systolic pressure is 105. She will be admitted to ICU for further evaluation and treatment with a consult to Dr. Murillo. 12/18/23 2 units PRBCs given and H/H up to 03/18. Blood pressure remains soft. Electrolytes improved and WBC trending down. Remains on Flagyl IV, Cipro discontinued secondary to itching. Dr. Murillo performed endoscopy. No active bleeding noted. Positive inflammatory changes without malignancy, negative for H. pylori. he would like a swallow camera endoscopy. 12/19/23 H/H stable at 9.2/27.3. Remains nauseated with dark tarry stools. Blood pressure remains soft. H/H seems to have stabilized but will recheck in the morning to evaluate for discharge 12/20/23 Appt set with GI for Saturday12/24/23. Pt states she will also make an appointment with her vascular surgeon. She is pain free today. Hemoglobin stable. No melena today. Mrs. Vega will be discharged to continue her regular medications with the addition of Flagyl 500mg po TID x 5 days. Discussed bland diet and safe activity. She is aware she should remain seated and call for assistance if her admission symptoms recur. Diet: [place] Activity: Ad hernandez Followup: ETHEL DAVENPORT [Primary Care Provider] - Frank Hart MD [ACTIVE - CAN ADMIT] -
[2023-12-20 12:29] VITALS: BP 144/72; TEMP 97.4
== END 2023-12-20 16:30 | disposition home or self-care (01) | DRG 378 ==
LOC: ER 14:17 → ERHOLD 18:16 → 3RD-ICU 20:15 → 4TH 12-18 18:26
PROVIDERS: ADMIT Hospitalist; ATTEND Hospitalist
PROC: 30233N1 Transfusion of Nonautologous Red Blood Cells into Peripheral Vein, Percutaneous Approach (ICD-10-PCS; 2023-12-17)
PROC: 0DB78ZX Excision of Stomach, Pylorus, Via Natural or Artificial Opening Endoscopic, Diagnostic (ICD-10-PCS; principal; 2023-12-18 12:15)
PROC: 0T9B70Z Drainage of Bladder with Drainage Device, Via Natural or Artificial Opening (ICD-10-PCS; 2023-12-19)
DX: K25.4 Chronic or unspecified gastric ulcer with hemorrhage (principal); D62 Acute posthemorrhagic anemia; E87.5 Hyperkalemia; E03.9 Hypothyroidism, unspecified; E78.5 Hyperlipidemia, unspecified; I95.9 Hypotension, unspecified; K44.9 Diaphragmatic hernia without obstruction or gangrene; J44.9 Chronic obstructive pulmonary disease, unspecified; K57.33 Diverticulitis of large intestine without perforation or abscess with bleeding; Z88.5 Allergy status to narcotic agent; Z79.01 Long term (current) use of anticoagulants; Z90.49 Acquired absence of other specified parts of digestive tract; Z79.890 Hormone replacement therapy; Z79.899 Other long term (current) drug therapy; Z90.710 Acquired absence of both cervix and uterus
CPT/HCPCS: 36415; 36430; 74177; 80048; 80053; 80061; 81001; 82947; 83605; 83690; 85014; 85018; 85025; 85610; 85730; 86850; 86900; 86901; 86920; 87040; 88304; 88305; 88312; 93005; 94640; 99285; J0744; J1170; J1200; J1940; J2405; J2470; J2550; J2704; J3010; J7030; J7050; J7120; J7613; P9016; Q9967